=== PATIENT | female | born 1960 | race Caucasian/White ===

== ENCOUNTER → 2017-03-01 | Outpatient (CLI) | payer BC ==
[~2017-03-01] MED LIST: ASPI-435 PO; BIOT1TAB2 PO; CALCTAB5 PO; HMLI SC; LEVO125T72 PO; LISI10TA PO; MULT-506 PO; SERT-234 PO
[2017-03-01 13:29] LABS: ESTIMATED AVERAGE GLUCOSE 217 mg/dl; HA1C FLAG Normal (Normal)
[2017-03-01 13:43] LABS: ALT/SGPT 32 U/L (12-78); AST/SGOT 28 U/L (15-37); BLOOD UREA NITROGEN 15 mg/dl (7-18); BUN/CREATININE RATIO 18.6 (10-20); CALCIUM 9.4 mg/dl (8.5-10.1); CARBON DIOXIDE 35 mmol/L (21-32); CHLORIDE 105 mmol/L (98-107); CHOLESTEROL 197 mg/dl (0-200); CREATININE 0.82 mg/dl (0.60-1.20); GLUCOSE 99 mg/dl (70-99); SODIUM 144 mmol/L (136-145)
[2017-03-01 13:45] LABS: ALKALINE PHOSPHATASE 139 U/L (45-117); CHOLESTEROL/HDL RATIO 1.8; HDL CHOLESTEROL 108 mg/dl; LDL CHOLESTEROL CALCULATED 74 mg/dl; TRIGLYCERIDES 77 mg/dl (0-150); VERY LOW DENSITY LIPOPROT CALC 15 mg/dl
== END | disposition home or self-care (01) ==
LOC: C.LABPVFM 09:07
PROVIDERS: ATTEND Family Medicine
DX: E10.9 Type 1 diabetes mellitus without complications (principal); E78.5 Hyperlipidemia, unspecified

== ENCOUNTER → 2017-05-01 | Outpatient (CLI) | payer BC ==
--- NOTE | 2017-05-02 14:24 | MAMMOGRAPHY REPORT ---
BILATERAL DIGITAL SCREENING MAMMOGRAM TOMOSYNTHESIS WITH CAD: 05/01/2017 CLINICAL HISTORY: Routine screening. Patient has no complaints. TECHNIQUE: Breast tomosynthesis in addition to standard 2D mammography was performed. Current study was also evaluated with a Computer Aided Detection (CAD) system. COMPARISON: Comparison is made to exams dated: 04/08/2016 mammogram, 04/06/2015 mammogram, 04/05/2014 mamm ogram, 03/24/2013 mammogram, 03/20/2012 mammogram, and 03/19/2011 mammogram - [facility] er. BREAST COMPOSITION: The tissue of both breasts is heterogeneously dense, which may obscure small mas ses. FINDINGS: No suspicious masses, calcifications, or areas of architectural distortion are noted in ei ther breast. There has been no significant interval change compared to prior exams. Scattered bilate ral benign appearing calcifications are noted. Bilateral asymmetries are stable; a nodular asymmetry seen within the left superior posterior breast on the MLO view has the appearance of normal overlapp ing fibroglandular tissue on the tomosynthesis images. IMPRESSION: ACR BI-RADS CATEGORY 2: BENIGN There is no mammographic evidence of malignancy. A 1 year screening mammogram is recommended. The pa tient will receive written notification of the results. Approximately 10% of breast cancers are not detected with mammography. A negative mammographic report should not delay biopsy if a clinically suggestive mass is present. Patsy Alonso M.D. /:05/01/2017 16:49:29 Esl Tutor: Eliana THORNE(Demetri)(Rober)(MONIQUE), [facility] letter sent: Normal 1/2 BI-RADS Code: ACR BI-RADS Category 2: Benign
== END | disposition home or self-care (01) ==
LOC: C.MAMM 13:57
PROVIDERS: ATTEND Family Medicine
DX: Z12.31 Encounter for screening mammogram for malignant neoplasm of breast (principal)

== ENCOUNTER → 2017-05-02 | Outpatient (CLI) | payer BC | END | disposition home or self-care (01) | LOC: C.LAB1850 09:40 | PROVIDERS: ATTEND Nurse Practitioner Adult Health | DX: E03.9 Hypothyroidism, unspecified (principal) ==

== ENCOUNTER 2021-01-13 18:52 | Observation (INO) ==
--- NOTE | 2021-01-13 18:57 | Emergency Department Note ---
Impression & Plan Seizure, Hypoglycemia ED Provider Note NAME: HALIMA FAUSTIN AGE: 61 SEX: F : 1960 ARRIVES VIA: Ambulance INFORMANT: Patient, ED PROVIDER(S): Rocky Joseph MD Chief Complaint: Low blood sugar HPI: Patient reportedly did have lower BSG's and initially the EMS call was made as there was concern for seizure. Patient's BSG's with her in the 20s and subsequently in the 30s. The patient was given D10 with an elevated BSG greater than 100. Upon arrival in the 150s. The patient does not remember the event may have had some vomiting. The patient currently denies any chest pain shortness of breath nausea or vomiting. The patient has fevers chills headache neck pain focal numbness tingling or weakness. Patient denies any recent changes in medications patient did have a recent diabetes visit no recent changes. Patient states she may have not eaten as much but had 1 piece of pizza today. Patient denies any infectious symptoms. Patient denies any alcohol or tobacco. ROS: See HPI for pertinent positives and negatives. A total of 10 systems were reviewed and otherwise negative. Past medical history: See below Surgical history: See below Social history: See below Physical Exam: GENERAL: Mask was placed on the patient. NAD, non-toxic. EYE EXAM: Normal conjunctiva. PERRL, no anisocoria and EOM's grossly intact w/o pain. NECK: Supple, no nuchal rigidity, no adenopathy, non-tender. No signs of meningismus. LUNGS: Clear to auscultation. Normal chest wall mechanics. HEART: NSR, no MRG. ABDOMEN: Abdomen soft, non-tender, normo-active bowel sounds, no masses, no rebound or guarding. BACK: No CVA TTP. SKIN: No rashes and no bruising. UPPER EXTREMITIES: Upper extremities are grossly normal. LOWER EXTREMITIES: Grossly normal, no edema. NEURO EXAM: A&O x3, cranial nerves II-XII grossly intact, normal speech, moves all 4 extremities on command w/o issue. No drift or sensory deficits. Differential diagnoses: Infection, dehydration, metabolic abnormality, hypo/hyperglycemia, electrolyte disturbance, anemia, hypoxia, cardiac sources, intracerebral event, toxicologic, neurologic, as well as other pathologies. Course: Patient was seen and evaluated the bedside. Full history physical exam was performed. EKG: Indication: Weakness Normal sinus rhythm, rate of 70, normal intervals, normal axis, no ST changes or T WI. Imaging Studies: Radiology results as stated below per my review in the radiologist's interpretation: SINGLE VIEW CHEST CLINICAL HISTORY: Generalized weakness. FINDINGS: An AP, portable, upright chest radiograph is compared to study dated 08/16/2018. The cardiomediastinal silhouette is unremarkable. The lungs and pleural spaces are clear. No pneumothorax is seen. The bony thorax is grossly intact. IMPRESSION: No active disease in the chest. ACT 112: Negative or not required by law. Electronically signed by: Bernardo Sunshine M.D. 01/13/2021 7:41 PM Dictated: 01/13/211939 Transcribed: 01/13/211939 Cardiac monitoring: An order was placed for continuous cardiac monitoring. The monitor shows a rate of 78 with sinus rhythm. MDM: Patient did present with concern for BSG's and seizure. Blood work was obtained along with an EKG. Patient was started on D5 half. BSG is every hour ordered. Patient has no focal findings and believe her seizure most likely related to low BSG. The patient has a nonfocal neurologic exam. Patient has normal white count H&H and platelet count. The patient's kidney function is unremarkable. Phosphorus mildly elevated. Urinalysis negative as well as alcohol. Covid negative. Given the patient's hypoglycemia and associated seizure believe it would be of benefit for additional evaluation and treatment as an inpatient. I did speak to the on-call hospitalist Dr. Carroll and the patient was admitted to the medicine service. Past Med/Surg History Medical History Depression Diabetes mellitus type 1, uncontrolled Dyslipidemia HTN (hypertension) Hypothyroid Vitamin D deficiency Surgical History History of section History of thyroid surgery History of tubal ligation Family History Grandmother Diabetes Father Hypertension Lung disease Myocardial infarction Skin cancer Aunt Cancer Grandfather Myocardial infarction Denies family history of Ovarian cancer Prostate cancer Breast cancer Colorectal cancer Social History Smoking Status: Never smoker Second Hand Exposure: No; Hx Alcohol Use: No Hx Substance Use: No Communication Ability: Effective Beliefs That Will Affect Care: None marital status: Current Living Situation: Spouse and Family current occupational status: employed Feels Safe at Home: Yes Childhood Exposure to Second-Hand Smoke: No Dental Care, Regularly: No Physical Activity Frequency: 5-6 Times per Week Assistive Devices: None Allergies Allergies Allergy/AdvReac Type Severity Reaction Status Date / Time No Known Allergies Allergy Unknown Verified 01/13/21 20:01 Home Meds Home Medications Medication Instructions Recorded Confirmed aspirin 81 mg PO DAILY 08/16/18 01/13/21 calcium carbonate [Calcium 600] 1,200 mg PO DAILY 08/16/18 01/13/21 acetone (urine) test #25 ea 08/12/19 12/14/20 atorvastatin 20 mg tablet 20 mg PO HS #30 tab 08/12/19 01/13/21 cholecalciferol (vitamin D3) 50 2,000 units PO DAILY #30 cap 08/12/19 01/13/21 mcg (2,000 unit) capsule meclizine 25 mg tablet 25 mg PO Q6H PRN #10 tab 08/12/19 01/13/21 multivitamin 1 tab PO DAILY 08/12/19 01/13/21 sertraline 100 mg tablet 100 mg PO DAILY #30 tab 08/12/19 01/13/21 insulin lispro [Humalog KwikPen 0 unit SQ TIDM 01/13/21 01/13/21 Insulin] levothyroxine [Synthroid] 125 mcg PO DAILY 01/13/21 01/13/21 lisinopril 20 mg PO DAILY 01/13/21 01/13/21 Previous Rx's Medication Instructions Recorded ReliOn Pen [place] 32 gauge x 532" #300 ea NS 02/14/20 lancets 33 gauge #300 ea 08/03/20 Lantus U-100 Insulin 100 unit/mL See Rx Instructions SQ HS 90 Days 08/14/20 subcutaneous solution #20 ml NS OneTouch Verio test strips #700 ea NS 08/14/20 insulin syringe-needle U-100 0.5 #100 ea 08/18/20 mL 31 gauge x 5/16" lancing device with lancets kit #1 ea 10/02/20 Results & Data (ED) Vital Signs Vital Signs - 24 hr 01/13/21 19:10 01/13/21 19:37 01/13/21 19:56 Temperature 37.0 C Temperature Source Temporal Artery Scan Pulse Rate 78 75 76 Pulse Rate from SpO2 Sensor 75 76 Respiratory Rate 14 13 16 Respiratory Effort / Characteristics Non-Labored Spontaneous Respiratory Depth Normal Blood Pressure 131/68 110/70 Blood Pressure Mean 89 83 Pulse Oximetry 97 98 100 Oxygen Delivery Method Room Air Room Air Room Air Sepsis New/Unexplained Change in Mental Status N/A Sepsis Action Taken by Nursing No Action Required 01/13/21 19:57 01/13/21 20:00 01/13/21 20:02 Temperature Temperature Source Pulse Rate 71 73 75 Pulse Rate from SpO2 Sensor 72 74 75 Respiratory Rate 14 17 17 Respiratory Effort / Characteristics Respiratory Depth Blood Pressure 174/34 H Blood Pressure Mean 80 Pulse Oximetry 100 99 97 Oxygen Delivery Method Room Air Room Air Room Air Sepsis New/Unexplained Change in Mental Status Sepsis Action Taken by Nursing 01/13/21 20:31 Temperature Temperature Source Pulse Rate 70 Pulse Rate from SpO2 Sensor 70 Respiratory Rate 19 Respiratory Effort / Characteristics Respiratory Depth Blood Pressure 130/69 Blood Pressure Mean 89 Pulse Oximetry 99 Oxygen Delivery Method Room Air Sepsis New/Unexplained Change in Mental Status Sepsis Action Taken by Shelter Medications Current Medication List: was personally reviewed by me Laboratory Data Attestation: I reviewed the patient's lab results. Result diagrams: 01/13/21 19:11 01/13/21 19:11 Lab Results 01/13/21 01/13/21 01/13/21 Range/Units 18:57 19:11 19:11 WBC 7.63 (4.8-10.8) K/uL RBC 4.80 (4.2-5.4) M/uL Hgb 15.0 (12.0-16.0) g/dL Hct 42.4 (37-47) % MCV 88.3 (80-100) fL MCH 31.3 (25-34) pg MCHC 35.4 (32-36) g/dL RDW Std Deviation 40.8 (36.4-46.3) fL RDW Coeff of Oswaldo 12.6 (11.5-14.5) % Plt Count 177 (130-400) K/uL MPV 10.9 H (7.4-10.4) fL Immature Gran % (Auto) 0.1 % Neut % (Auto) 56.7 % Lymph % (Auto) 34.1 % [place] % (Auto) 6.6 % Eos % (Auto) 2.0 % Baso % (Auto) 0.5 % Neut # (Auto) 4.33 (1.4-6.5) K/uL Lymph # (Auto) 2.60 (1.2-3.4) K/uL [place] # (Auto) 0.50 (0.11-0.59) K/uL Eos # (Auto) 0.15 (0-0.5) K/uL Baso # (Auto) 0.04 (0-0.2) K/uL Immature Gran # (Auto) 0.01 (0.00-0.02) K/uL Sodium 143 (136-145) mmol/L Potassium 4.0 (3.5-5.1) mmol/L Chloride 105 (98-107) mmol/L Carbon Dioxide 32 (21-32) mmol/L Anion Gap 6.0 (3-11) BUN 17 (7-18) mg/dl Creatinine 0.87 (0.6-1.2) mg/dl Est Cr Clr Drug Dosing 59.3 ml/min Est GFR ( Amer) 84.5 Est GFR (Non-Af Amer) 72.9 BUN/Creatinine Ratio 19.6 (10-20) Glucose 103 H (70-99) mg/dl POC Glucose 156 H (70-99) mg/dl Calcium 8.9 (8.5-10.1) mg/dl Phosphorus 5.5 H (2.5-4.9) mg/dl Magnesium 2.0 (1.8-2.4) mg/dl Total Bilirubin 0.3 (0.2-1) mg/dl AST 18 (15-37) U/L ALT 27 (12-78) U/L Alkaline Phosphatase 135 H (45-117) U/L Total Protein 7.2 (6.4-8.2) gm/dl Albumin 3.7 (3.4-5.0) gm/dl Globulin 3.5 (2.5-4.0) gm/dl Albumin/Globulin Ratio 1.1 (0.9-2) TSH 1.730 (0.300-4.500) uIu/ml Urine Color Urine Appearance (Clear) Urine pH (4.5-7.5) Ur Specific Raphine (1.000-1.030) Urine Protein (Negative) Urine Glucose (UA) (Negative) Urine Ketones (Negative) Urine Blood (Negative) Urine Nitrite (Negative) Urine Bilirubin (Negative) Urine Urobilinogen (Negative) Ur Leukocyte Esterase (Negative) Ethyl Alcohol mg/dL (0-3) mg/dl COVID-19 Eval Order SARS-CoV-2, RNA, NAAT (NEGATIVE) 01/13/21 01/13/21 01/13/21 Range/Units 19:35 19:42 19:42 WBC (4.8-10.8) K/uL RBC (4.2-5.4) M/uL Hgb (12.0-16.0) g/dL Hct (37-47) % MCV (80-100) fL MCH (25-34) pg MCHC (32-36) g/dL RDW Std Deviation (36.4-46.3) fL RDW Coeff of Oswaldo (11.5-14.5) % Plt Count (130-400) K/uL MPV (7.4-10.4) fL Immature Gran % (Auto) % Neut % (Auto) % Lymph % (Auto) % [place] % (Auto) % Eos % (Auto) % Baso % (Auto) % Neut # (Auto) (1.4-6.5) K/uL Lymph # (Auto) (1.2-3.4) K/uL [place] # (Auto) (0.11-0.59) K/uL Eos # (Auto) (0-0.5) K/uL Baso # (Auto) (0-0.2) K/uL Immature Gran # (Auto) (0.00-0.02) K/uL Sodium (136-145) mmol/L Potassium (3.5-5.1) mmol/L Chloride (98-107) mmol/L Carbon Dioxide (21-32) mmol/L Anion Gap (3-11) BUN (7-18) mg/dl Creatinine (0.6-1.2) mg/dl Est Cr Clr Drug Dosing ml/min Est GFR ( Amer) Est GFR (Non-Af Amer) BUN/Creatinine Ratio (10-20) Glucose (70-99) mg/dl POC Glucose (70-99) mg/dl Calcium (8.5-10.1) mg/dl Phosphorus (2.5-4.9) mg/dl Magnesium (1.8-2.4) mg/dl Total Bilirubin (0.2-1) mg/dl AST (15-37) U/L ALT (12-78) U/L Alkaline Phosphatase (45-117) U/L Total Protein (6.4-8.2) gm/dl Albumin (3.4-5.0) gm/dl Globulin (2.5-4.0) gm/dl Albumin/Globulin Ratio (0.9-2) TSH (0.300-4.500) uIu/ml Urine Color Yellow Urine Appearance Clear (Clear) Urine pH 5.0 (4.5-7.5) Ur Specific Raphine 1.007 (1.000-1.030) Urine Protein Negative (Negative) Urine Glucose (UA) Negative (Negative) Urine Ketones Negative (Negative) Urine Blood Negative (Negative) Urine Nitrite Negative (Negative) Urine Bilirubin Negative (Negative) Urine Urobilinogen Negative (Negative) Ur Leukocyte Esterase Negative (Negative) Ethyl Alcohol mg/dL (0-3) mg/dl COVID-19 Eval Order Covid19 [facility]Now [facility] SARS-CoV-2, RNA, NAAT NEGATIVE (NEGATIVE) 01/13/21 01/13/21 Range/Units 19:56 19:58 WBC (4.8-10.8) K/uL RBC (4.2-5.4) M/uL Hgb (12.0-16.0) g/dL Hct (37-47) % MCV (80-100) fL MCH (25-34) pg MCHC (32-36) g/dL RDW Std Deviation (36.4-46.3) fL RDW Coeff of Oswaldo (11.5-14.5) % Plt Count (130-400) K/uL MPV (7.4-10.4) fL Immature Gran % (Auto) % Neut % (Auto) % Lymph % (Auto) % [place] % (Auto) % Eos % (Auto) % Baso % (Auto) % Neut # (Auto) (1.4-6.5) K/uL Lymph # (Auto) (1.2-3.4) K/uL [place] # (Auto) (0.11-0.59) K/uL Eos # (Auto) (0-0.5) K/uL Baso # (Auto) (0-0.2) K/uL Immature Gran # (Auto) (0.00-0.02) K/uL Sodium (136-145) mmol/L Potassium (3.5-5.1) mmol/L Chloride (98-107) mmol/L Carbon Dioxide (21-32) mmol/L Anion Gap (3-11) BUN (7-18) mg/dl Creatinine (0.6-1.2) mg/dl Est Cr Clr Drug Dosing ml/min Est GFR ( Amer) Est GFR (Non-Af Amer) BUN/Creatinine Ratio (10-20) Glucose (70-99) mg/dl POC Glucose 176 H (70-99) mg/dl Calcium (8.5-10.1) mg/dl Phosphorus (2.5-4.9) mg/dl Magnesium (1.8-2.4) mg/dl Total Bilirubin (0.2-1) mg/dl AST (15-37) U/L ALT (12-78) U/L Alkaline Phosphatase (45-117) U/L Total Protein (6.4-8.2) gm/dl Albumin (3.4-5.0) gm/dl Globulin (2.5-4.0) gm/dl Albumin/Globulin Ratio (0.9-2) TSH (0.300-4.500) uIu/ml Urine Color Urine Appearance (Clear) Urine pH (4.5-7.5) Ur Specific Raphine (1.000-1.030) Urine Protein (Negative) Urine Glucose (UA) (Negative) Urine Ketones (Negative) Urine Blood (Negative) Urine Nitrite (Negative) Urine Bilirubin (Negative) Urine Urobilinogen (Negative) Ur Leukocyte Esterase (Negative) Ethyl Alcohol mg/dL < 3.0 (0-3) mg/dl COVID-19 Eval Order SARS-CoV-2, RNA, NAAT (NEGATIVE) Administered Medications Atorvastatin Calcium (Atorvastatin 20 Mg Tab) 20 mg PO HS ZAID Stop: 02/12/21 22:44 Last Admin: 02/13/21 23:41 Dose: 20 mg Documented by: [id number] Enoxaparin Sodium (Enoxaparin Inj 40 Mg/0.4 Ml Syr) 40 mg SQ HS ZAID Stop: 02/12/21 22:44 Last Admin: 01/13/21 23:41 Dose: Not Given Documented by: [id number] Discontinued Medications Dextrose/Sodium Chloride (D5w And 1/2nss) 1,000 mls @ 125 mls/hr IV .Q8H ZAID Stop: 02/12/21 19:14 Last Infusion: 01/13/21 22:19 Dose: 0 mls/hr Documented by: [id number] Infusion: 01/13/21 21:30 Dose: 0 mls/hr Documented by: [id number] Admin: 01/13/21 19:26 Dose: 125 mls/hr Documented by: [id number] Insulin Aspart (Insulin Aspart 100 Units/Ml 3 Ml Pen) 0 units SC ONE ONE Stop: 01/13/21 22:46 Last Admin: 01/13/21 23:37 Dose: 9 units Documented by: [id number] Cosigned by: [id number] Insulin Glargine (Insulin Glargine Solostar 100 Units/Ml 3 Ml Pen) 8 units SC ONE ONE Stop: 01/13/21 22:46 Last Admin: 01/13/21 23:36 Dose: 8 units Documented by: [id number] Cosigned by: [id number] Discharge Plan Visit Data Chief Complaint: Hypoglycemia Stated Complaint: HYPOGLYCEMIA ED Provider: Rocky Joseph Discharge Problem: Seizure, Hypoglycemia Patient Disposition: Admitted As Inpatient Discharge Instructions Interventions: ED Discharge Assessment Last Done: 01/13/21 22:08
[2021-01-13] MEDS ORDERED: D5W AND 1/2NSS 1,000 ML IV SCH (19:15)
[2021-01-13 19:20] LABS: Basophils # (auto) 0.04 K/uL (0-0.2); Basophils % (auto) 0.5 %; Eosinophils # (auto) 0.15 K/uL (0-0.5); Hematocrit (blood only) 42.4 % (37-47); Immature Granulocytes # (auto) 0.01 K/uL (0.00-0.02); Immature Granulocytes % (auto) 0.1 %; Lymphocytes % (auto) 34.1 %; Mean Corpuscular Hemoglobin 31.3 pg (25-34); Mean Corpuscular Hgb Conc 35.4 g/dL (32-36); Mean Corpuscular Volume 88.3 fL (80-100); Mean Platelet Volume 10.9 fL (7.4-10.4); Monocytes % (auto) 6.6 %; Neutrophils # (auto) 4.33 K/uL (1.4-6.5); Neutrophils % (auto) 56.7 %; Platelet Count 177 K/uL (130-400); RDW Coefficient of Variation 12.6 % (11.5-14.5); RDW Standard Deviation 40.8 fL (36.4-46.3); White Blood Count 7.63 K/uL (4.8-10.8)
[2021-01-13 19:39] LABS: Albumin Level 3.7 gm/dl (3.4-5.0); BUN Creatinine Ratio 19.6 (10-20); Calcium 8.9 mg/dl (8.5-10.1); Creatinine Clr Calc Pharmacy 59.3 ml/min; Est GFR (African American) 84.5; Est GFR (Non-African American) 72.9
--- NOTE | 2021-01-13 19:42 | XRay Report ---
SINGLE VIEW CHEST CLINICAL HISTORY: Generalized weakness. FINDINGS: An AP, portable, upright chest radiograph is compared to study dated 08/16/2018. The cardiom ediastinal silhouette is unremarkable. The lungs and pleural spaces are clear. No pneumothorax is see n. The bony thorax is grossly intact. IMPRESSION: No active disease in the chest. ACT 112: Negative or not required by law. Electronically signed by: Bernardo Sunshine M.D. 01/13/2021 7:41 PM
[2021-01-13 19:45] LABS: Appearance Urine Clear (Clear); Bilirubin Urine Negative (Negative); Blood Urine Negative (Negative); Color Urine Yellow; Glucose Urine UA Negative (Negative); Ketones Urine Negative (Negative); Leukocyte Esterase Urine Negative (Negative); Nitrite Urine Negative (Negative); Protein Urine Negative (Negative); Specific Gravity Urine 1.007 (1.000-1.030); Urobilinogen Urine Negative (Negative)
[2021-01-13 19:49] LABS: Albumin Globulin Ratio 1.1 (0.9-2); Bilirubin,Total 0.3 mg/dl (0.2-1); Globulin 3.5 gm/dl (2.5-4.0); Phosphorus 5.5 mg/dl (2.5-4.9); Thyroid Stimulating Hormone 1.73 uIu/ml (0.300-4.500); Total Protein 7.2 gm/dl (6.4-8.2)
--- NOTE | 2021-01-13 21:00 | History & Physical Report ---
Date of Service January 13, 2021 Assessment & Plan (1) Hypoglycemia: 61yo C female with DM-I, variable blood sugars at home presenting with hypoglycemia, possible seizure activity. Patient's blood sugar in the field noted to be 20's - she was administered D10 with improvement. RPA=[id number] on a rrival here. She was started on D5NSS with improvement. Uncertain why her blood sugars are erratic at home. She states that sometimes her Novolog "just builds up" which causes her to have hypoglycemic episodes. She follows with Endocrine. It has been recommended that she use a continuous glucose monitor and pump. She is not interested in using these devices at this time - not terribly clear why she is so hesitant. -Admit to medical -Maintain seizure precautions for now - ?seizure activity in setting of hypoglycemia which has improved, doubt further seizure -Fingerstick q 2 hours -Lantus 8u BID - will hold PM dose tonight and start tomorrow AM -ISS - CF 50, CR 20. No prandial bolus -Glycemic management consultation appreciated -Goal blood sugar 140 - 200 for now Present on Admission?: Yes (2) Diabetes mellitus type 1, uncontrolled: Management as above -Lanuts 8u BID -ISS - goal blood sugar 140 - 200 for now -CF 50, CR 20 -Glycemic management consultation appreciated -Continue ASA and Lisinopril Present on Admission?: Yes (3) Depression: Chronic. Stable. Patient states no intention of self harm or insulin overdose. -Continue Sertraline 100mg po daily Present on Admission?: Yes (4) HTN (hypertension): Blood pressure slightly elevated at 174/34 -Continue Lisinopril 20mg po daily -Continue to monitor Present on Admission?: Yes (5) Hypothyroid: Chronic. TSH within normal limits -Continue Synthroid Present on Admission?: Yes (6) Vitamin D deficiency: Chronic -Continue Vitamin D supplementation Present on Admission?: Yes (7) Dyslipidemia: Chronic. -Continue Atorvastatin F/E/N - Patient on D5NSS in ER. Will discontinue this in favor of diet. BSG checks q 2 hours as above. Electrolytes WNL - PO4 mildly elevated at 5.5, CC - TypeI/AHA diet as tolerated Ppx - Lovenox 40 Code - Full per discussion with patient Dispo - Admit to medical History of Present Illness Chief Complaint: hypoglycemia Primary Care Provider: DILAN Beltran Antonieta Gutierrez is a 61yo C female with history of DM-I, HTN, HLP, Hypothyroidism , Depression/Anxiety presenting with hypoglycemia. Patient follows with Endocrine/Diabetes Education - last seen on 12/14/20. Per review of note, patient has been having variable blood sugars - occasionally > 300 as well as low blood sugars a few times per month. She is unable to establish a pattern of when her blood sugars are high and low or identify triggers for highs and lows. She has an insulin pump as well as dexCom CGM but is not using either at this time. She reports taking 19 units of Lantus qHS and 10 units of Novolog with meals. Her CmHG9W=6.2 on 12/21/20. Patient woke up this morning in her usual state of health. She reports having yogurt for breakfast and a piece of pizza for lunch. She took Novolog 10u around 16:30 then had a small piece of cake and two Tasty Cakes. She began to feel nauseated around 17:00 so she laid down to take a nap. She does not recall what happened after that and woke up in the hospital. Per discussion with ER team - patient's son witnessed some seizure like activity. EMS was called and patient's blood sugar was found to be in the 20's then 30's. She was administered D10 in the field. BSG on arrival = 103 with subsequent fingersticks 156 --> 176. She has no complaints at present. Denies fever/chills/malaise/chest pain/cough/SOB/abdominal pain/nausea/vomiting/diarrhea or constipation. No recent illness or infection. No additional complaints at this time. ER Course: D5NSS Allergies Allergy/AdvReac Type Severity Reaction Status Date / Time No Known Allergies Allergy Unknown Verified 01/13/21 20:01 Home Medications Medication Instructions Recorded Confirmed Type aspirin 81 mg PO DAILY 08/16/18 01/13/21 History calcium carbonate [Calcium 600] 1,200 mg PO DAILY 08/16/18 01/13/21 History acetone (urine) test #25 ea 08/12/19 12/14/20 History atorvastatin 20 mg tablet 20 mg PO HS #30 tab 08/12/19 01/13/21 History cholecalciferol (vitamin D3) 50 2,000 units PO DAILY #30 cap 08/12/19 01/13/21 History mcg (2,000 unit) capsule meclizine 25 mg tablet 25 mg PO Q6H PRN #10 tab 08/12/19 01/13/21 History multivitamin 1 tab PO DAILY 08/12/19 01/13/21 History sertraline 100 mg tablet 100 mg PO DAILY #30 tab 08/12/19 01/13/21 History ReliOn Pen [place] 32 gauge x 5/32" #300 ea NS 02/14/20 12/14/20 Rx lancets 33 gauge #300 ea 08/03/20 12/14/20 Rx Lantus U-100 Insulin 100 unit/mL See Rx Instructions SQ HS 90 Days 08/14/20 01/13/21 Rx subcutaneous solution #20 ml NS OneTouch Verio test strips #700 ea NS 08/14/20 12/14/20 Rx insulin syringe-needle U-100 0.5 #100 ea 08/18/20 12/14/20 Rx mL 31 gauge x 5/16" lancing device with lancets kit #1 ea 10/02/20 12/14/20 Rx insulin lispro [Humalog KwikPen 0 unit SQ TIDM 01/13/21 01/13/21 History Insulin] levothyroxine [Synthroid] 125 mcg PO DAILY 01/13/21 01/13/21 History lisinopril 20 mg PO DAILY 01/13/21 01/13/21 History Past Med/Surg History Medical History (Updated 01/13/21 @ 21:09 by Kristal Carroll DO) Depression Diabetes mellitus type 1, uncontrolled Dyslipidemia HTN (hypertension) Hypothyroid Vitamin D deficiency Surgical History (Updated 09/07/19 @ 16:35 by DILAN Beltran) History of section History of thyroid surgery History of tubal ligation Family History (Updated 03/24/20 @ 08:00 by ELODIA Valencia) Grandmother Diabetes Father Hypertension Lung disease Myocardial infarction Skin cancer Aunt Cancer Grandfather Myocardial infarction Denies family history of Ovarian cancer Prostate cancer Breast cancer Colorectal cancer Social History (Updated 03/24/20 @ 08:02 by ELODIA Valencia) Smoking Status: Never smoker Second Hand Exposure: No; Hx Alcohol Use: No Hx Substance Use: No Communication Ability: Effective Beliefs That Will Affect Care: None marital status: Current Living Situation: Spouse and Family current occupational status: employed Feels Safe at Home: Yes Childhood Exposure to Second-Hand Smoke: No Dental Care, Regularly: No Physical Activity Frequency: 5-6 Times per Week Assistive Devices: None Review of Systems Review of Systems: All systems reviewed & are unremarkable except as noted in HPI & below Physical Exam Physical Exam: General: patient resting comfortably, NAD, non-toxic in appearance, AA&O x 4 Skin: warm, dry, intact, no rashes or lesions HEENT: NC/AT, PERRL, EOMI, anicteric sclera, conjunctiva without injection, external ear normal to inspection and nontender, nares patent, moist mucus membranes, dentition intact, no oropharyngeal lesions, neck supple, trachea midline, no LAD, no thyromegaly, no JVD Heart: +S1/S2, regular, no m/r/g Lungs: equal air entry bilaterally, no rales/rhonchi/wheezes Abd: +BS, soft, NT/ND, no masses/organomegaly/ascites Ext: warm, 2+ pulses in UE/LE bilaterally, no clubbing/cyanosis or edema Neuro: nonfocal, patient AA&O x 4, speech intact, no facial droop, moving all extremities on command with equal strength 5/5 Results & Data Results & Data ([facility]) Vital Signs (Past 12 Hours) Vital Signs Temp Pulse Resp BP Pulse Ox 01/13/21 20:02 75 17 174/34 H 97 01/13/21 20:00 73 17 99 01/13/21 19:57 71 14 100 01/13/21 19:56 76 16 110/70 100 01/13/21 19:37 75 13 98 01/13/21 19:10 37.0 C 78 14 131/68 97 Laboratory Results Lab Results 01/13/21 01/13/21 01/13/21 Range/Units 18:57 19:11 19:11 WBC 7.63 (4.8-10.8) K/uL RBC 4.80 (4.2-5.4) M/uL Hgb 15.0 (12.0-16.0) g/dL Hct 42.4 (37-47) % MCV 88.3 (80-100) fL MCH 31.3 (25-34) pg MCHC 35.4 (32-36) g/dL RDW Std Deviation 40.8 (36.4-46.3) fL RDW Coeff of Oswaldo 12.6 (11.5-14.5) % Plt Count 177 (130-400) K/uL MPV 10.9 H (7.4-10.4) fL Immature Gran % (Auto) 0.1 % Neut % (Auto) 56.7 % Lymph % (Auto) 34.1 % Person % (Auto) 6.6 % Eos % (Auto) 2.0 % Baso % (Auto) 0.5 % Neut # (Auto) 4.33 (1.4-6.5) K/uL Lymph # (Auto) 2.60 (1.2-3.4) K/uL Person # (Auto) 0.50 (0.11-0.59) K/uL Eos # (Auto) 0.15 (0-0.5) K/uL Baso # (Auto) 0.04 (0-0.2) K/uL Immature Gran # (Auto) 0.01 (0.00-0.02) K/uL Sodium 143 (136-145) mmol/L Potassium 4.0 (3.5-5.1) mmol/L Chloride 105 (98-107) mmol/L Carbon Dioxide 32 (21-32) mmol/L Anion Gap 6.0 (3-11) BUN 17 (7-18) mg/dl Creatinine 0.87 (0.6-1.2) mg/dl Est Cr Clr Drug Dosing 59.3 ml/min Est GFR ( Amer) 84.5 Est GFR (Non-Af Amer) 72.9 BUN/Creatinine Ratio 19.6 (10-20) Glucose 103 H (70-99) mg/dl POC Glucose 156 H (70-99) mg/dl Calcium 8.9 (8.5-10.1) mg/dl Phosphorus 5.5 H (2.5-4.9) mg/dl Magnesium 2.0 (1.8-2.4) mg/dl Total Bilirubin 0.3 (0.2-1) mg/dl AST 18 (15-37) U/L ALT 27 (12-78) U/L Alkaline Phosphatase 135 H (45-117) U/L Total Protein 7.2 (6.4-8.2) gm/dl Albumin 3.7 (3.4-5.0) gm/dl Globulin 3.5 (2.5-4.0) gm/dl Albumin/Globulin Ratio 1.1 (0.9-2) TSH 1.730 (0.300-4.500) uIu/ml Urine Color Urine Appearance (Clear) Urine pH (4.5-7.5) Ur Specific [place] (1.000-1.030) Urine Protein (Negative) Urine Glucose (UA) (Negative) Urine Ketones (Negative) Urine Blood (Negative) Urine Nitrite (Negative) Urine Bilirubin (Negative) Urine Urobilinogen (Negative) Ur Leukocyte Esterase (Negative) Ethyl Alcohol mg/dL (0-3) mg/dl COVID-19 Eval Order SARS-CoV-2, RNA, NAAT (NEGATIVE) 01/13/21 01/13/21 01/13/21 Range/Units 19:35 19:42 19:42 WBC (4.8-10.8) K/uL RBC (4.2-5.4) M/uL Hgb (12.0-16.0) g/dL Hct (37-47) % MCV (80-100) fL MCH (25-34) pg MCHC (32-36) g/dL RDW Std Deviation (36.4-46.3) fL RDW Coeff of Oswaldo (11.5-14.5) % Plt Count (130-400) K/uL MPV (7.4-10.4) fL Immature Gran % (Auto) % Neut % (Auto) % Lymph % (Auto) % Person % (Auto) % Eos % (Auto) % Baso % (Auto) % Neut # (Auto) (1.4-6.5) K/uL Lymph # (Auto) (1.2-3.4) K/uL Person # (Auto) (0.11-0.59) K/uL Eos # (Auto) (0-0.5) K/uL Baso # (Auto) (0-0.2) K/uL Immature Gran # (Auto) (0.00-0.02) K/uL Sodium (136-145) mmol/L Potassium (3.5-5.1) mmol/L Chloride (98-107) mmol/L Carbon Dioxide (21-32) mmol/L Anion Gap (3-11) BUN (7-18) mg/dl Creatinine (0.6-1.2) mg/dl Est Cr Clr Drug Dosing ml/min Est GFR ( Amer) Est GFR (Non-Af Amer) BUN/Creatinine Ratio (10-20) Glucose (70-99) mg/dl POC Glucose (70-99) mg/dl Calcium (8.5-10.1) mg/dl Phosphorus (2.5-4.9) mg/dl Magnesium (1.8-2.4) mg/dl Total Bilirubin (0.2-1) mg/dl AST (15-37) U/L ALT (12-78) U/L Alkaline Phosphatase (45-117) U/L Total Protein (6.4-8.2) gm/dl Albumin (3.4-5.0) gm/dl Globulin (2.5-4.0) gm/dl Albumin/Globulin Ratio (0.9-2) TSH (0.300-4.500) uIu/ml Urine Color Yellow Urine Appearance Clear (Clear) Urine pH 5.0 (4.5-7.5) Ur Specific [place] 1.007 (1.000-1.030) Urine Protein Negative (Negative) Urine Glucose (UA) Negative (Negative) Urine Ketones Negative (Negative) Urine Blood Negative (Negative) Urine Nitrite Negative (Negative) Urine Bilirubin Negative (Negative) Urine Urobilinogen Negative (Negative) Ur Leukocyte Esterase Negative (Negative) Ethyl Alcohol mg/dL (0-3) mg/dl COVID-19 Eval Order Covid19 IDNow atMMTC SARS-CoV-2, RNA, NAAT NEGATIVE (NEGATIVE) 01/13/21 01/13/21 Range/Units 19:56 19:58 WBC (4.8-10.8) K/uL RBC (4.2-5.4) M/uL Hgb (12.0-16.0) g/dL Hct (37-47) % MCV (80-100) fL MCH (25-34) pg MCHC (32-36) g/dL RDW Std Deviation (36.4-46.3) fL RDW Coeff of Oswaldo (11.5-14.5) % Plt Count (130-400) K/uL MPV (7.4-10.4) fL Immature Gran % (Auto) % Neut % (Auto) % Lymph % (Auto) % Person % (Auto) % Eos % (Auto) % Baso % (Auto) % Neut # (Auto) (1.4-6.5) K/uL Lymph # (Auto) (1.2-3.4) K/uL Person # (Auto) (0.11-0.59) K/uL Eos # (Auto) (0-0.5) K/uL Baso # (Auto) (0-0.2) K/uL Immature Gran # (Auto) (0.00-0.02) K/uL Sodium (136-145) mmol/L Potassium (3.5-5.1) mmol/L Chloride (98-107) mmol/L Carbon Dioxide (21-32) mmol/L Anion Gap (3-11) BUN (7-18) mg/dl Creatinine (0.6-1.2) mg/dl Est Cr Clr Drug Dosing ml/min Est GFR ( Amer) Est GFR (Non-Af Amer) BUN/Creatinine Ratio (10-20) Glucose (70-99) mg/dl POC Glucose 176 H (70-99) mg/dl Calcium (8.5-10.1) mg/dl Phosphorus (2.5-4.9) mg/dl Magnesium (1.8-2.4) mg/dl Total Bilirubin (0.2-1) mg/dl AST (15-37) U/L ALT (12-78) U/L Alkaline Phosphatase (45-117) U/L Total Protein (6.4-8.2) gm/dl Albumin (3.4-5.0) gm/dl Globulin (2.5-4.0) gm/dl Albumin/Globulin Ratio (0.9-2) TSH (0.300-4.500) uIu/ml Urine Color Urine Appearance (Clear) Urine pH (4.5-7.5) Ur Specific [place] (1.000-1.030) Urine Protein (Negative) Urine Glucose (UA) (Negative) Urine Ketones (Negative) Urine Blood (Negative) Urine Nitrite (Negative) Urine Bilirubin (Negative) Urine Urobilinogen (Negative) Ur Leukocyte Esterase (Negative) Ethyl Alcohol mg/dL < 3.0 (0-3) mg/dl COVID-19 Eval Order SARS-CoV-2, RNA, NAAT (NEGATIVE) Diagnostic Findings SINGLE VIEW CHEST CLINICAL HISTORY: Generalized weakness. FINDINGS: An AP, portable, upright chest radiograph is compared to study dated 08/16/2018. The cardiomediastinal silhouette is unremarkable. The lungs and pleural spaces are clear. No pneumothorax is seen. The bony thorax is grossly intact. IMPRESSION: No active disease in the chest. ACT 112: Negative or not required by law. Electronically signed by: Bernardo Sunshine M.D. 01/13/2021 7:41 PM Dictated: 01/13/[id number]: 01/13/211939 ECG Additional Comments: EKG with NSR at 70, normal axis, SM=612, QRS=72, ImY=274, No acute ischemic changes Code Status & VTE Plan VTE Prophylaxis Plan VTE Prophylaxis will be ordered: Yes PG Care Time/CCT Total # of Minutes Spent Total Time Spent with Patient: Total time spent is greater than 50% in coordination of care (as documented) at patient's floor/unit and/or counseling patient: Coding Level of Care Code 34491 Initial Inpt Care Lvl 3 Diagnoses Hypoglycemia E16.2 Diabetes mellitus type 1, uncontrolled E10.649 Glycemic state: with hypoglycemia Coma presence: without coma Depression F32.9 Depression Type: major depressive disorder Major depression recurrence: unspecified whether recurrent Active/Remission status: remission status unspecified HTN (hypertension) I10 Hypertension type: essential hypertension Hypothyroid E03.9 Hypothyroidism type: unspecified Vitamin D deficiency E55.9 Dyslipidemia E78.5 (1) Depression Depression Type: major depressive disorder Major depression recurrence: unspecified whether recurrent Active/Remission status: remission status unspecified Qualified Code(s): F32.9 - Major depressive disorder, single episode, unspecified (2) Hypothyroid Hypothyroidism type: unspecified Qualified Code(s): E03.9 - Hypothyroidism, unspecified (3) HTN (hypertension) Hypertension type: essential hypertension Qualified Code(s): I10 - Essential (primary) hypertension (4) Diabetes mellitus type 1, uncontrolled Glycemic state: with hypoglycemia Coma presence: without coma Qualified Code(s): E10.649 - Type 1 diabetes mellitus with hypoglycemia without coma
[2021-01-13] MEDS ORDERED: CARBOHYDRATES FOR HYPOGLYCEMIA PO PRN (22:18)
[2021-01-13] MEDS ORDERED: GLUCOSE 10 TABS/TUBE PO PRN (22:18)
[2021-01-13] MEDS ORDERED: DEXTROSE 50% 50 ML SYRINGE IV PRN (22:18)
[2021-01-13] MEDS ORDERED: GLUCOSE 40% GEL 15 GM TUBE PO PRN (22:18)
[2021-01-13] MEDS ORDERED: ACETAMINOPHEN 325 MG TAB PO PRN (22:18)
[2021-01-13] MEDS ORDERED: GLUCAGON FOR INJ 1 MG VIAL SQ PRN (22:18)
[2021-01-13] MEDS ORDERED: ONDANSETRON INJ 2 MG/ML 2 ML VIAL IV PRN (22:18)
[2021-01-13] MEDS ORDERED: INSULIN GLARGINE SOLOSTAR 100 UNITS/ML 3 ML PEN SC ONE (22:45)
[2021-01-13] MEDS ORDERED: INSULIN ASPART 100 UNITS/ML 3 ML PEN SC ONE (22:45)
[2021-01-13] MEDS ORDERED: ATORVASTATIN 20 MG TAB PO SCH (22:45)
[2021-01-13] MEDS ORDERED: ENOXAPARIN INJ 40 MG/0.4 ML SYR SQ SCH (22:45)
[2021-01-13] MEDS ORDERED: PHARMACY GLYCEMIC MGMT CONSULT PRN (23:07)
[2021-01-14] MEDS: INSULIN ASPART 100 UNITS/ML 3 ML PEN SC SCH ×3 (03:40→12:41)
[2021-01-14 06:11] LABS: Basophils # (auto) 0.04 K/uL (0-0.2); Basophils % (auto) 0.5 %; Eosinophils # (auto) 0.12 K/uL (0-0.5); Eosinophils % (auto) 1.5 %; Hematocrit (blood only) 39.7 % (37-47); Hemoglobin 13.7 g/dL (12.0-16.0); Immature Granulocytes # (auto) 0.02 K/uL (0.00-0.02); Immature Granulocytes % (auto) 0.3 %; Lymphocytes # (auto) 2.04 K/uL (1.2-3.4); Lymphocytes % (auto) 26.1 %; Mean Corpuscular Hemoglobin 30.4 pg (25-34); Mean Corpuscular Hgb Conc 34.5 g/dL (32-36); Monocytes # (auto) 0.48 K/uL (0.11-0.59); Monocytes % (auto) 6.1 %; Neutrophils # (auto) 5.13 K/uL (1.4-6.5); Neutrophils % (auto) 65.5 %; Platelet Count 181 K/uL (130-400); RDW Coefficient of Variation 12.9 % (11.5-14.5); RDW Standard Deviation 41.1 fL (36.4-46.3); Red Blood Count 4.51 M/uL (4.2-5.4); White Blood Count 7.83 K/uL (4.8-10.8)
[2021-01-14] MEDS ORDERED: LEVOTHYROXINE SODIUM 125 MCG TABLET PO SCH (06:30)
[2021-01-14 06:40] LABS: Albumin Level 3.4 gm/dl (3.4-5.0); BUN Creatinine Ratio 16.8 (10-20); Bilirubin Direct 0.1 mg/dl (0-0.2); Calcium 9.1 mg/dl (8.5-10.1); Creatinine Clr Calc Pharmacy 65.8 ml/min; Est GFR (African American) 99.5; Est GFR (Non-African American) 85.9
[2021-01-14 06:43] LABS: Bilirubin,Total 0.5 mg/dl (0.2-1); Total Protein 6.5 gm/dl (6.4-8.2)
[2021-01-14] MEDS ORDERED: ASPIRIN 81 MG ECTAB PO SCH (09:00)
[2021-01-14] MEDS ORDERED: INSULIN GLARGINE SOLOSTAR 100 UNITS/ML 3 ML PEN SC SCH ×2 (09:00→21:00)
[2021-01-14] MEDS ORDERED: SERTRALINE HCL 100 MG TABLET PO SCH (09:00)
[2021-01-14] MEDS ORDERED: lisinopril 20 MG TAB PO SCH (09:00)
[2021-01-14] MEDS ORDERED: CHOLECALCIFEROL 1,000 UNITS 25 MCG TAB PO SCH (09:00)
--- NOTE | 2021-01-14 11:02 | Pharmacy Report ---
Pharmacy Glycemic Short Note 2 - Date of Service January 14, 2021 - Glycemic Short BSG Results (Last 24 hours): 01/13/21 01/13/21 01/13/21 18:57 19:11 19:56 Glucose 103 H POC Glucose 156 H 176 H 01/13/21 01/13/21 01/13/21 21:23 23:05 23:07 Glucose POC Glucose 301 H* 414 H* 453 H* 01/14/21 01/14/21 01/14/21 01:31 03:38 04:32 Glucose POC Glucose 287 H 130 H 134 H 01/14/21 01/14/21 01/14/21 05:52 06:41 08:14 Glucose 130 H POC Glucose 126 H 180 H 01/14/21 01/14/21 10:30 10:35 Glucose POC Glucose 402 H* 351 H* OUTPATIENT ANTIDIABETIC REGIMEN: * Lantus 19 units HS, humalog 10 units with meals, CF = 20 , CR 1:15 * A1c 8.2 12/21/20 ASSESSMENT: * 61 year old admitted with severe hypoglycemia, type 1 diabetic and concern for possible seizure activity. BIOMEDICAL SCIENTIST BSGs noted to be in the 20s and she was administered D10 with improvement. On arrival BSG 103 mg/dL. Per notes, patient reports BSGs erratic at home. Follows [facility]. * Received total of 17 units of insulin yesterday, of which 8 units were basal insulin. BSGs had trended up to 400s, now this AM back down to 126 mg/dL * Patient refused AM Lantus this morning. Spoke with RN and patient refusing insulin because this is not when she takes it at home. RN provided education to patient and importance of taking dose. Provider notified to patient's refusal of insulin. * Will try again to redose basal at lunch time, will give 12 units now and add scale on for HS time PLAN FOR INPATIENT GLYCEMIC CONTROL: * Hold outpatient oral diabetes medications * Basal insulin * Lantus 12 units x 1, then Lantus 0-5 units at HS * Bolus insulin * NovoLog per scale ACHS or Q6hrs while NPO * Goal Range: Low 120 mg/dL - High 160 mg/dL * Correction Factor: 35 mg/dL/unit * Nutritional / Prandial insulin per carb ratio of 1 unit per 12 grams CHO consumed PLAN FOR DISCHARGE: * tbd
[2021-01-14] MEDS ORDERED: INSULIN GLARGINE SOLOSTAR 100 UNITS/ML 3 ML PEN SC ONE (12:45)
--- NOTE | 2021-01-14 16:17 | Discharge Summary ---
Date of Service January 14, 2021 Admission HPI Per Admitting Provider Antonieta Gutierrez is a 61yo C female with history of DM-I, HTN, HLP, Hypothyroidism , Depression/Anxiety presenting with hypoglycemia. Patient follows with Endocrine/Diabetes Education - last seen on 12/14/20. Per review of note, patient has been having variable blood sugars - occasionally > 300 as well as low blood sugars a few times per month. She is unable to establish a pattern of when her blood sugars are high and low or identify triggers for highs and lows. She has an insulin pump as well as dexCom CGM but is not using either at this time. She reports taking 19 units of Lantus qHS and 10 units of Novolog with meals. Her CeMK6Y=6.2 on 12/21/20. Patient woke up this morning in her usual state of health. She reports having yogurt for breakfast and a piece of pizza for lunch. She took Novolog 10u aroun d 16:30 then had a small piece of cake and two Tasty Cakes. She began to feel nauseated around 17:00 so she laid down to take a nap. She does not recall what happened after that and woke up in the hospital. Per discussion with ER team - patient's son witnessed some seizure like activity. EMS was called and patient's blood sugar was found to be in the 20's then 30's. She was administered D10 in the field. BSG on arrival = 103 with subsequent fingersticks 156 --> 176. She has no complaints at present. Denies fever/chills/malaise/chest pain/cough/SOB/abdominal pain/nausea/vomiting/diarrhea or constipation. No recent illness or infection. No additional complaints at this time. ER Course: D5NSS Principal Diagnosis Hypoglycemia Discharge Exam Constitutional WD/WN, vitals as above Eyes EOM intact bilaterally; no conjunctival abnormality ENMT external ear and nose normal, oropharynx normal Neck trachea midline, no thyromegaly normal visual inspection Respiratory normal respiratory effort, lungs clear to auscultation no respiratory distress Cardiovascular RRR, no murmur, no edema Gastrointestinal (Abdomen) Inspection/Auscultation: abdomen normal to inspection; abdomen not distended Musculoskeletal no cyanosis or clubbing, extremities motor strength 5/5 Skin no rashes, warm and dry Neurologic moves all extremities and awake Psychiatric Orientation: alert, oriented to person and cooperative Discharge Data Allergies Allergy/AdvReac Type Severity Reaction Status Date / Time No Known Allergies Allergy Unknown Verified 01/13/21 20:01 Consultations 01/13/21 20:04 ED Decision to Admit Stat Hospital Course (1) Hypoglycemia: 61yo C female with DM-I, variable blood sugars at home presenting with hypoglycemia, possible seizure activity. Patient's blood sugar in the field noted to be 20's - she was administered D10 with improvement. HSY=073 on arrival here. She was started on D5NSS with improvement. Uncertain why her blood sugars are erratic at home. She states that sometimes her Novolog "just builds up" which causes her to have hypoglycemic episodes. She follows with Endocrine. It has been recommended that she use a continuous glucose monitor and pump. She is not interested in using these devices at this time - not terribly clear why she is so hesitant. -Admit to medical -Maintain seizure precautions for now - ?seizure activity in setting of hypoglycemia which has improved, doubt further seizure -Fingerstick q 2 hours -Lantus 8u BID - will hold PM dose tonight and start tomorrow AM -ISS - CF 50, CR 20. No prandial bolus -Glycemic management consultation appreciated -Goal blood sugar 140 - 200 for now The patient's blood sugar returned to normal by the morning. She declined her AM Lantus dose, stating she didn't take insulin in the morning. She was very reluctant to make any change to her insulin regimen, instead stating that this was a long-standing issue for her and that she was very brittle. We discussed glucose monitors and insulin pumps, and she didn't outright say no, but said she "didn't like change." Her usual highs and lows are upwards of 300s and lows in the 60s. I encouraged her to see her precision agriculture technician as soon as possible and to be open to adjustments to better control her blood sugars. (2) Diabetes mellitus type 1, uncontrolled: Management as above -Lanuts 8u BID -ISS - goal blood sugar 140 - 200 for now -CF 50, CR 20 -Glycemic management consultation appreciated -Continue ASA and Lisinopril (3) Depression: Chronic. Stable. Patient states no intention of self harm or insulin overdose. -Continue Sertraline 100mg po daily (4) HTN (hypertension): Blood pressure slightly elevated at 174/34 -Continue Lisinopril 20mg po daily -Continue to monitor (5) Hypothyroid: Chronic. TSH within normal limits -Continue Synthroid (6) Vitamin D deficiency: Chronic -Continue Vitamin D supplementation (7) Dyslipidemia: Chronic. -Continue Atorvastatin F/E/N - Patient on D5NSS in ER. Will discontinue this in favor of diet. BSG checks q 2 hours as above. Electrolytes WNL - PO4 mildly elevated at 5.5, CC - TypeI/AHA diet as tolerated Ppx - Lovenox 40 Code - Full per discussion with patient Dispo - Admit to medical Total Time Total Time Spent Total Time Spent (In Minutes): 35 Discharge Plan Discharge Items Patient Disposition: Home - Self-Care Reason For Visit: HYPOGLYCEMIA Discharge Diagnosis: Hypoglycemia Activity: Resume your previous activity Non-emergency contact: Primary Care Provider and Specialist Call non-emergency contact if: your symptoms worsen Follow-up/Referrals: Yelena Oliveros CRNP [Primary Care Provider] - Coleman Dimas MD [Physician] - Diet: Carb Count or DM1 Addtl Attending Provider Instructions: Please follow up with Dr. Dimas at your earliest ability. I know you are very reluctant to adjust your insulin, but blood sugars as low as yours was can be fatal or cause permanent disability. Additionally, sugars as high as the 300-400 range cause concerns for infection, heart attacks, strokes, and other problems. I would encourage you to discuss insulin pump and continuous glucose monitor systems for your diabetes as these can help keep your blood sugars in a closer to normal range. Please call Dr. Dimas's office or come to the hospital if you have any further concerns about your blood sugar, or if it gets below 60 or above 400. Pending Studies at Discharge: No Stand-Alone Forms: [employer], Smoking Cessation Medications and DC Order Prescriptions: Continued (DME) pen needle, diabetic [ReliOn Pen [place]] 32 gauge x 5/32" needle See Dose Instructions .ROUTE .MEDSUPPLY Qty: 300 RF: 1 (DME) lancets [OneTouch Delica Lancets] 33 gauge misc See Dose Instructions .ROUTE .MEDSUPPLY Qty: 300 RF: 11 Lantus U-100 Insulin 100 unit/mL solution See Rx Instructions SQ HS 90 Days Qty: 20 RF: 3 (DME) OneTouch Verio test strips Strip See Dose Instructions .ROUTE .MEDSUPPLY Qty: 700 RF: 3 (DME) insulin syringe-needle U-100 [BD Insulin Syringe Ultra-Fine] 0.5 mL 31 gauge x 5/16" syringe See Dose Instructions .ROUTE .MEDSUPPLY Qty: 100 RF: 3 (DME) lancing device with lancets [[employer] Lanc Device] Kit See Rx Instructions .ROUTE .MEDSUPPLY Qty: 1 RF: 0 atorvastatin 20 mg tablet 20 mg PO HS Qty: 30 RF: 0 (DME) Ketostix strip See Dose Instructions .ROUTE .MEDSUPPLY Qty: 25 RF: 0 meclizine 25 mg tablet 25 mg PO Q6H PRN (Reason: dizzyness) Qty: 10 RF: 0 multivitamin tablet 1 tab PO DAILY RF: 0 sertraline 100 mg tablet 100 mg PO DAILY Qty: 30 RF: 0 cholecalciferol (vitamin D3) 2,000 unit capsule 2,000 units PO DAILY Qty: 30 RF: 0 aspirin 81 mg Tablet,Delayed Release (Dr/Ec) 81 mg PO DAILY RF: 0 calcium carbonate [Calcium 600] 600 mg calcium (1,500 mg) Tablet 1,200 mg PO DAILY RF: 0 lisinopril 20 mg tablet 20 mg PO DAILY RF: 0 insulin lispro [Humalog KwikPen Insulin] 100 unit/mL insulin pen 0 unit SQ TIDM RF: 0 levothyroxine [Synthroid] 125 mcg tablet 125 mcg PO DAILY RF: 0 Discharge Orders: Discharge Order (Routine); Ordered 01/14/21 Ordered By: Selvin Soto/Other Patient Handouts: Hypoglycemia (Low Blood Sugar), Blood Sugar Monitoring and ..., ED Diabetic Insulin Reaction Admission Data Admit Date/Time: 01/13/21 20:40 Attending Provider: Selvin Ray Admit Provider: Kristal Carroll Primary Care Provider: Yelena Oliveros Other Providers: Selvin Ray Other Interventions: Discharge Summary Assessment (RN) Last Done: 01/14/21 12:49 Coding Level of Care Code D/C Day Management >30 mins Diagnoses Hypoglycemia E16.2 Diabetes mellitus type 1, uncontrolled E10.649 Glycemic state: with hypoglycemia Coma presence: without coma Depression F32.9 Depression Type: major depressive disorder Major depression recurrence: unspecified whether recurrent Active/Remission status: remission status unspecified HTN (hypertension) I10 Hypertension type: essential hypertension Hypothyroid E03.9 Hypothyroidism type: unspecified Vitamin D deficiency E55.9 Dyslipidemia E78.5
--- NOTE | 2021-01-15 05:17 | Electrocardiogram Report ---
Test Reason : Blood Pressure : / mmHG Vent. Rate : 070 BPM Atrial Rate : 070 BPM P-R Int : 132 ms QRS Dur : 072 ms QT Int : 432 ms P-R-T Axes : 040 043 055 degrees QTc Int : 466 ms Normal sinus rhythm Low voltage QRS Borderline ECG When compared with ECG of 16-AUG-2018 10:15, Vent. rate has decreased BY 41 BPM Confirmed by Collins Salguero ([id number]) on 01/15/2021 5:17:30 AM Referred By: REFERRED SELF Confirmed By:Collins Salguero
== END 2021-01-14 15:01 | disposition home or self-care (01) ==
LOC: ED 18:52 → SUATTDRO 20:40 → 3N 20:40 → INTOOBSV 20:40 → 3N 22:08